=== PATIENT | male | born 1970 | race African-American/Black ===

== ENCOUNTER 2020-09-07 05:24 | Emergency (ER) | payer MEDICAID ==
[~2020-09-07] VITALS: Ht 188 cm; Wt 93.0 kg
[2020-09-07 05:31] VITALS: BP 139/97
[2020-09-07] MEDS ORDERED: CEFTRIAXONE SODIUM 500 MG/VIAL IM ONE (06:00)
[2020-09-07] MEDS ORDERED: DOXYCYCLINE HYCLATE 100MG CAPSULE PO ONE (06:00)
[2020-09-07] MEDS ORDERED: DOXY100C2 MT (06:02)
[2020-09-09 05:10] LABS: NEISSERIA GONORRHOEAE NAA Positive (Negative)
== END 2020-09-07 06:32 | disposition home or self-care (01) ==
LOC: ER 05:40
DX: A64 Unspecified sexually transmitted disease (principal); Z79.899 Other long term (current) drug therapy
CPT/HCPCS: 86592; 87491; 87591; 96372; 99283; J0696

== ENCOUNTER 2021-02-27 06:08 | Emergency (ER) | payer MEDICAID ==
[~2021-02-27] VITALS: Ht 188 cm; Wt 90.0 kg
[~2021-02-27 06:08] MED LIST: DOXY100C5 MT
[2021-02-27 07:28] VITALS: BP 142/91
[2021-02-27] MEDS ORDERED: DOXY100C5 PO (08:28)
[2021-02-27] MEDS ORDERED: DOXYCYCLINE HYCLATE 100MG CAPSULE PO ONE (08:30)
[2021-02-27] MEDS ORDERED: CEFTRIAXONE SODIUM 1 G/VIAL IM ONE (08:30)
[2021-02-27 08:36] LABS: CLARITY URINE CLOUDY (CLEAR); COLOR URINE YELLOW (YELLOW); KETONES URINE NEGATIVE (NEGATIVE); LEUKOCYTE ESTERASE URINE 3+ (NEGATIVE); NITRITE URINE NEGATIVE (NEGATIVE); OCCULT BLOOD URINE 1+ (NEGATIVE); PROTEIN URINE NEGATIVE (NEGATIVE); SPECIFIC GRAVITY URINE 1.018 (1.005-1.030)
[2021-03-03 04:07] LABS: NEISSERIA GONORRHOEAE NAA Positive (Negative)
== END 2021-02-27 08:45 | disposition home or self-care (01) ==
LOC: ER 06:51
DX: A54.9 Gonococcal infection, unspecified (principal)
CPT/HCPCS: 81003; 87086; 87491; 87591; 96372; 99283; J0696

== ENCOUNTER 2022-04-18 08:59 | Inpatient (IN) | payer MEDICAID, OTHER ==
[~2022-04-18] VITALS: Ht 188 cm; Wt 86.2 kg
[~2022-04-18 08:59] MED LIST changes: +DOXY100C5 PO
[2022-04-18 11:13] LABS: BASOPHILS % 0.1 % (0.0-2.0); EOSINOPHILS % 0.2 % (0.0-5.0); HEMATOCRIT. 56.6 % (42.0-52.0); HEMOGLOBIN. 19.2 g/dL (14.0-18.0); LYMPHOCYTES % 11.8 % (20.0-50.0); MEAN CORPUSCULAR HEMOGLOBIN 30.1 pg (28.0-32.0); MEAN CORPUSCULAR VOLUME 88.7 fL (80.0-94.0); MEAN PLATELET VOLUME 8.7 fl (7.4-10.4); MONOCYTES % 10.6 % (2.0-8.0); NEUTROPHILS % 77.3 % (40.0-76.0); PLATELET 220 x1000/uL (130-400); RED BLOOD CELL COUNT 6.38 mill/uL (4.7-6.1); RED CELL DISTRIBUTION WIDTH 13.4 % (11.6-14.6)
[2022-04-18 11:22] LABS: CHLORIDE 88 mEq/L (98-107)
[2022-04-18 11:27] LABS: INR 1.3; PROTHROMBIN TIME 13.3 sec (9.6-11.0)
[2022-04-18] MEDS ORDERED: POTASSIUM CHLORIDE INJ 40 MEQ in DEXT 5% WATER 250 ML IV ONE (13:45)
[2022-04-18] MEDS ORDERED: MORPHINE SULFATE 2 MG/ML CPJ (NOT FOR IM USE) IV NR (14:00)
[2022-04-18] MEDS: KCL 20MEQ/100ML X 2 FOR TOTAL KCL 40MEQ/200ML IV SCH ×2 (14:30→16:36)
[2022-04-18] MEDS: SODIUM CHLORIDE 0.45% 1,000 ML IV SCH (14:30)
[2022-04-18 19:01] LABS: CLARITY URINE CLEAR (CLEAR); COLOR URINE DARK YELLOW (YELLOW); KETONES URINE 2+ (NEGATIVE); LEUKOCYTE ESTERASE URINE TRACE (NEGATIVE); NITRITE URINE NEGATIVE (NEGATIVE); OCCULT BLOOD URINE NEGATIVE (NEGATIVE); PROTEIN URINE 1+ (NEGATIVE)
[2022-04-18] MEDS ORDERED: PANTOPRAZOLE SODIUM 40 MG/VIAL IV SCH (21:00)
[2022-04-18] MEDS: PANTOPRAZOLE SODIUM 40 MG/VIAL IV SCH (21:16)
[2022-04-18] MEDS: MORPHINE SULFATE 2 MG/ML CPJ (NOT FOR IM USE) IV PRN (21:59)
[2022-04-18] MEDS ORDERED: NALOXONE HCL 0.4MG/ML VIAL IV PRN (22:00)
[2022-04-19] MEDS: SODIUM CHLORIDE 0.45% 1,000 ML IV SCH
[2022-04-19] MEDS: MORPHINE SULFATE 2 MG/ML CPJ (NOT FOR IM USE) IV PRN (02:05)
[2022-04-19] MEDS ORDERED: SKIN ADHESIVE 0.7 GM EA TOP ONE (02:40)
[2022-04-19] MEDS ORDERED: BUPIVACAINE HCL/PF 0.5% (5MG/ML) 10ML ONE (02:40)
[2022-04-19] MEDS ORDERED: ONDANSETRON HCL 4MG/2ML INJ IV PRN ×2 (02:45→04:30)
[2022-04-19] MEDS ORDERED: FENTANYL CITRATE/PF 50MCG/ML 2ML VIAL ONE ×2 (03:01→04:36)
[2022-04-19] MEDS ORDERED: ROCURONIUM BROMIDE 10MG/ML VIAL 5ML IV ONE (03:17)
[2022-04-19] MEDS ORDERED: NEOSTIGMINE METHYLSULFATE 1MG/ML 10 ML VIAL ONE (03:51)
[2022-04-19] MEDS ORDERED: METOCLOPRAMIDE HCL 10MG/2ML VIAL ONE (03:51)
[2022-04-19] MEDS ORDERED: GLYCOPYRROLATE 0.2 MG/ML 2ML VIAL ONE ×2 (03:51)
[2022-04-19] MEDS ORDERED: CEFAZOLIN SODIUM 1000MG/VIAL ONE (03:51)
[2022-04-19] MEDS ORDERED: ONDANSETRON HCL 4MG/2ML INJ ONE (03:51)
[2022-04-19] MEDS ORDERED: DEXAMETHASONE 4MG/ML 1ML VIAL ONE (03:51)
[2022-04-19] MEDS ORDERED: HYDROMORPHONE HCL/PF 2MG/ML CPJ IV PRN (04:30)
[2022-04-19 05:30] VITALS: BP 127/80
[2022-04-19] MEDS: MORPHINE SULFATE 4 MG/ML CPJ (NOT FOR IM USE) IV PRN ×5 (05:49→22:20)
[2022-04-19] MEDS: DEXT 5%/0.45% NACL KCL 20MEQ/L 1,000 ML IV SCH ×2 (06:10→18:49)
[2022-04-19 08:00] VITALS: BP 127/84
[2022-04-19] MEDS: PANTOPRAZOLE SODIUM 40 MG/VIAL IV SCH ×2 (08:51→20:35)
[2022-04-19] MEDS ORDERED: FAMOTIDINE 20MG/2ML VIAL IV SCH (09:00)
[2022-04-19 11:55] VITALS: BP 104/70
[2022-04-19 12:29] LABS: HEMATOCRIT. 50.3 % (42.0-52.0); HEMOGLOBIN. 17.1 g/dL (14.0-18.0); MEAN CORPUSCULAR VOLUME 88.4 fL (80.0-94.0); MEAN PLATELET VOLUME 8.5 fl (7.4-10.4); PLATELET 178 x1000/uL (130-400); RED BLOOD CELL COUNT 5.69 mill/uL (4.7-6.1); RED CELL DISTRIBUTION WIDTH 13.6 % (11.6-14.6)
[2022-04-19 15:30] VITALS: BP 106/40
[2022-04-19 18:01] LABS: PLATELET ESTIMATE NORMAL
[2022-04-19 20:00] VITALS: BP 114/64
[2022-04-19 21:09] LABS: *AMPHETAMINES SCREEN URINE NEGATIVE (NEGATIVE); *BARBITURATES SCREEN URINE NEGATIVE (NEGATIVE); *BENZODIAZEPINES SCREEN URINE NEGATIVE (NEGATIVE); *COCAINE SCREEN URINE PRESUMTIVE POSITIVE (NEGATIVE); CANNABINOID URINE SCREEN PRESUMTIVE POSITIVE (NEGATIVE); METHADONE URINE SCREEN NEGATIVE (NEGATIVE); OPIATES URINE SCREEN PRESUMTIVE POSITIVE (NEGATIVE); PHENCYCLIDINE URINE SCREEN NEGATIVE (NEGATIVE)
[2022-04-20] VITALS: BP 102/57
[2022-04-20 04:00] VITALS: BP 118/58
[2022-04-20] MEDS: DEXT 5%/0.45% NACL KCL 20MEQ/L 1,000 ML IV SCH (04:57)
[2022-04-20] MEDS: MORPHINE SULFATE 4 MG/ML CPJ (NOT FOR IM USE) IV PRN ×3 (04:57→13:55)
[2022-04-20 07:07] LABS: BASOPHILS % 0.1 % (0.0-2.0); HEMATOCRIT. 47.4 % (42.0-52.0); HEMOGLOBIN. 16.1 g/dL (14.0-18.0); LYMPHOCYTES % 19.6 % (20.0-50.0); MEAN CORPUSCULAR HEMOGLOBIN 30.1 pg (28.0-32.0); MEAN CORPUSCULAR VOLUME 88.5 fL (80.0-94.0); MEAN PLATELET VOLUME 9.4 fl (7.4-10.4); MONOCYTES % 11.5 % (2.0-8.0); NEUTROPHILS % 67.8 % (40.0-76.0); PLATELET 153 x1000/uL (130-400); RED BLOOD CELL COUNT 5.36 mill/uL (4.7-6.1); RED CELL DISTRIBUTION WIDTH 13.3 % (11.6-14.6)
[2022-04-20 08:00] VITALS: BP 103/63
[2022-04-20 08:50] LABS: CHLORIDE 96 mEq/L (98-107)
[2022-04-20] MEDS: PANTOPRAZOLE SODIUM 40 MG/VIAL IV SCH ×2 (08:57→20:47)
[2022-04-20 12:00] VITALS: BP 103/65
[2022-04-20] MEDS ORDERED: POTASSIUM CHLORIDE INJ 40 MEQ in DEXT 5% WATER 250 ML IV NR (12:00)
[2022-04-20 16:00] VITALS: BP 96/69
[2022-04-20] MEDS: MORPHINE SULFATE 2 MG/ML CPJ (NOT FOR IM USE) IV PRN ×2 (18:02→20:47)
[2022-04-20 20:00] VITALS: BP 127/71
[2022-04-21 00:04] VITALS: BP 115/73
[2022-04-21] MEDS: DEXT 5%/0.45% NACL KCL 20MEQ/L 1,000 ML IV SCH (03:33)
[2022-04-21] MEDS: MORPHINE SULFATE 2 MG/ML CPJ (NOT FOR IM USE) IV PRN ×2 (03:34→07:43)
[2022-04-21 03:49] VITALS: BP 111/69
[2022-04-21 06:04] LABS: BASOPHILS % 0.1 % (0.0-2.0); EOSINOPHILS % 2.4 % (0.0-5.0); HEMOGLOBIN. 15.4 g/dL (14.0-18.0); LYMPHOCYTES % 17.4 % (20.0-50.0); MEAN CORPUSCULAR HEMOGLOBIN 30.5 pg (28.0-32.0); MEAN CORPUSCULAR VOLUME 87.1 fL (80.0-94.0); MEAN PLATELET VOLUME 8.9 fl (7.4-10.4); NEUTROPHILS % 68.1 % (40.0-76.0); PLATELET 166 x1000/uL (130-400); RED BLOOD CELL COUNT 5.05 mill/uL (4.7-6.1); RED CELL DISTRIBUTION WIDTH 12.8 % (11.6-14.6)
[2022-04-21 06:12] LABS: CHLORIDE 98 mEq/L (98-107)
[2022-04-21 08:00] VITALS: BP 110/7
[2022-04-21] MEDS ORDERED: POTASSIUM CHLORIDE 20MEQ TABLET SR PO SCH (08:00)
[2022-04-21] MEDS ORDERED: HYDROCODONE/ACETAMINOPHEN 5/325MG TABLET PO PRN (08:00)
[2022-04-21] MEDS: PANTOPRAZOLE SODIUM 40 MG/VIAL IV SCH (09:09)
[2022-04-21 10:30] VITALS: BP 110/76
== END 2022-04-21 11:05 | disposition home or self-care (01) | DRG 227 ==
LOC: ER 08:59 → EDBD 08:59 → MICUSO 12:17 → 7WST 04-19 05:39
PROVIDERS: ADMIT Internal Medicine; ATTEND Internal Medicine
PROC: 0WUF0JZ Supplement Abdominal Wall with Synthetic Substitute, Open Approach (ICD-10-PCS; principal; 2022-04-19)
DX: K43.9 Ventral hernia without obstruction or gangrene (principal); N17.0 Acute kidney failure with tubular necrosis; K92.0 Hematemesis; E87.6 Hypokalemia; F17.200 Nicotine dependence, unspecified, uncomplicated; F12.90 Cannabis use, unspecified, uncomplicated; Z79.899 Other long term (current) drug therapy
CPT/HCPCS: 36415; 74176; 80048; 80053; 80305; 81003; 83605; 85025; 87426; 88302; 99285; C1781; C9113; J0690; J1100; J2270; J2405; J2710; J2765; J3010; J3480; J3490; J7060

== ENCOUNTER 2022-04-22 12:25 | Emergency (ER) | payer OTHER ==
[~2022-04-22] VITALS: Ht 188 cm; Wt 86.0 kg
[2022-04-22 12:30] VITALS: BP 111/75
[2022-04-23] MEDS ORDERED: MAG355OR21 MT (12:21)
== END 2022-04-22 18:58 | disposition left against medical advice (07) ==
LOC: ER 12:35
DX: Z53.21 Procedure and treatment not carried out due to patient leaving prior to being seen by health care provider (principal)
CPT/HCPCS: 93005

== ENCOUNTER 2022-04-23 06:45 | Emergency (ER) | payer OTHER ==
[~2022-04-23] VITALS: Ht 188 cm; Wt 72.0 kg
[2022-04-23 07:21] VITALS: BP 134/79
[2022-04-23] MEDS ORDERED: MAGNESIUM/ALUMINUM HYDROXIDE/SIMETHICONE 30ML UDC PO STA (08:26)
[2022-04-23] MEDS ORDERED: VISCOUS LIDOCAINE 2% 15 ML UDC PO STA (08:26)
[2022-04-23] MEDS ORDERED: PANTOPRAZOLE 40MG DR TABLET PO ONE (08:30)
[2022-04-23 09:10] LABS: CHLORIDE 103 mEq/L (98-107)
[2022-04-23 09:26] LABS: BASOPHILS % 0.2 % (0.0-2.0); EOSINOPHILS % 3.9 % (0.0-5.0); HEMATOCRIT. 44.4 % (42.0-52.0); HEMOGLOBIN. 15.4 g/dL (14.0-18.0); LYMPHOCYTES % 25.6 % (20.0-50.0); MEAN CORPUSCULAR HEMOGLOBIN 30.5 pg (28.0-32.0); MEAN CORPUSCULAR VOLUME 88.2 fL (80.0-94.0); MEAN PLATELET VOLUME 8.1 fl (7.4-10.4); NEUTROPHILS % 57.3 % (40.0-76.0); PLATELET 213 x1000/uL (130-400); RED BLOOD CELL COUNT 5.03 mill/uL (4.7-6.1); RED CELL DISTRIBUTION WIDTH 12.6 % (11.6-14.6)
[2022-04-23] MEDS ORDERED: IOHEXOL-300 100 ML BOTTLE ONE (11:38)
[2022-04-23] MEDS ORDERED: MAG355OR21 MT (12:21)
== END 2022-04-23 12:49 | disposition home or self-care (01) ==
LOC: ER 06:45
DX: K29.70 Gastritis, unspecified, without bleeding (principal); Z98.890 Other specified postprocedural states
CPT/HCPCS: 36415; 71045; 74177; 80053; 83690; 84484; 85025; 99285; Q9967